=== PATIENT | male | born 1950 | race Caucasian/White ===

== ENCOUNTER 2024-05-18 13:48 | Emergency (ER) | payer OTHER, SELFPAY ==
[2024-05-18 13:59] VITALS: BP 155/87
--- NOTE | 2024-05-18 14:09 | ED.GENMED ---
ED Provider Triage
<Jesu Brown PA-C - Last Filed: 05/18/24 14:32>
-
Patient seen by provider in Triage?: Seen in Triage
Attestation: A medical screening examination has been initiated by a qualified medical provider. Based on the assessment performed at this time, it has been determined that an emergent medical condition may exist and the patient has been informed
that further medical evaluation and possible additional diagnostic testing may be needed.
HPI: 73-year-old male presenting with lower abdominal pain progressively worsening for the past 4 to 5 days, no bowel movement for 5 days but is having small volume of liquid stool. He has a history of fecal impaction as well as by obstruction.
Beginning to vomit today prompting him to come to the ER.
GENERAL: Alert , in no apparent distress
EYE: No visual abnormalities.
NECK: Trachea midline
ENT: No visible abnormalities.
LUNGS: No acute respiratory distress
NEUROLOGICAL: Alert and oriented
SKIN: Skin intact. No visible changes.
MUSCULOSKELETAL: Moving extremities normally
PSYCH: Normal and appropriate interaction.
A/P: Small bowel obstruction versus fecal impaction, will obtain labs with plan to image
This is a medical evaluation conducted in person to initiate diagnostic evaluation and provide initial therapeutics. Please see further documentation by the treating clinician.
History of Present Illness
<Jesu Brown PA-C - Last Filed: 05/18/24 14:32>
General
Chief Complaint: Abdominal Pain
Time Seen by Provider: 05/18/24 16:38
<Efren Harrison DO - Last Filed: 05/18/24 17:27>
General
Source: patient
Exam Limitations: none
History of Present Illness
History of Present Illness:
See MDM
Past History
<Jesu Brown PA-C - Last Filed: 05/18/24 14:32>
Past History
ED Past Medical History: Cancer (kidney) and HTN
Social History
Tobacco: Non-smoker
Alcohol: Occasional
Personal:
Living: with family
Employment: Disabled
Phy Exam
<Efren Harrison DO - Last Filed: 05/18/24 17:27>
Physical Exam
Physical Exam:
See MDM
Course
<Jesu Brown PA-C - Last Filed: 05/18/24 14:32>
Orders/Labs/Results
Orders:
Orders
05/18/24 14:06
CT Abd/Pel (IV only)-[facility] only Urgent
Comment:
Reason For Exam: abd pain, hx of SBO
05/18/24 14:34
Complete Blood Count/With Diff Urgent
Comprehensive Metabolic Panel Urgent
Lactic Acid Urgent
Lipase Urgent
Abnormal Lab Results
05/18/24
14:34
Absolute Neuts (auto) 9.0 H 10^3/uL
(1.4-6.5)
Neutrophils % 82.6 H %
(42.2-75.2)
Lymphocytes % 10.9 L %
(20.5-51.1)
Creatinine 0.6 L mg/dL
(0.7-1.3)
Glucose 122 H mg/dl
(70-99)
05/18/24 14:34
05/18/24 14:34
Vital Signs
Initial and Last Documented VS:
Initial Vital Signs
Temp Pulse Resp BP Pulse Ox
97.6 F 72 20 155/87 95
05/18/24 13:59 05/18/24 13:59 05/18/24 13:59 05/18/24 13:59 05/18/24 13:59
Last Documented Vital Signs
Temp Pulse Resp BP Pulse Ox
97.6 F 72 20 155/87 95
05/18/24 13:59 05/18/24 13:59 05/18/24 13:59 05/18/24 13:59 05/18/24 13:59
<Efren Harrison, DO - Last Filed: 05/18/24 17:27>
Orders/Labs/Results
Orders:
Orders
05/18/24 14:06
CT Abd/Pel (IV only)-[facility] only Urgent
Comment:
Reason For Exam: abd pain, hx of SBO
05/18/24 14:34
Complete Blood Count/With Diff Urgent
Comprehensive Metabolic Panel Urgent
Lactic Acid Urgent
Lipase Urgent
Abnormal Lab Results
05/18/24
14:34
Absolute Neuts (auto) 9.0 H 10^3/uL
(1.4-6.5)
Neutrophils % 82.6 H %
(42.2-75.2)
Lymphocytes % 10.9 L %
(20.5-51.1)
Creatinine 0.6 L mg/dL
(0.7-1.3)
Glucose 122 H mg/dl
(70-99)
05/18/24 14:34
05/18/24 14:34
Vital Signs
Initial and Last Documented VS:
Initial Vital Signs
Temp Pulse Resp BP Pulse Ox
97.6 F 72 20 155/87 95
05/18/24 13:59 05/18/24 13:59 05/18/24 13:59 05/18/24 13:59 05/18/24 13:59
Last Documented Vital Signs
Temp Pulse Resp BP Pulse Ox
97.6 F 72 20 155/87 95
05/18/24 13:59 05/18/24 13:59 05/18/24 13:59 05/18/24 13:59 05/18/24 13:59
<Efren Harrison, DO - Last Filed: 05/18/24 17:27>
MDM/Problems Addressed
Differential Diagnosis Includes:
HPI and MDM Narrative:
The triage provider note was evaluated
73-year-old male presenting for evaluation of abdominal pain and constipation. Patient has a history of constipation. He stopped taking his Colace a few days ago because he was away fishing. Patient complained of worsening abdominal pain
When I evaluated the patient, blood work and CT were already performed. CT shows concern for constipation. Patient states he had multiple bowel movements before into the room and is feeling better. I still performed a rectal to ensure that there
is no stool in the rectal vault. The rectal vault was empty. We discussed restarting his Colace regimen and using intermittent laxatives. I discussed the incidental findings on the CT but patient is already aware of that receives yearly MRIs
Physical exam
General: Well appearing and non-toxic
HEENT: protecting airway
Neck: appears supple
CV: No evidence of cyanosis
Resp: No accessory muscle use
Abd: Non-distended. No significant tenderness noted
Rectal: No stool in the rectal vault
Extremities: No deformities
Neuro: alert
Psych: Normal affect
Skin: Intact
Problems Addressed including Acute and Chronic Conditions affecting care:
1. Abdominal pain
Acuity: acute
Prognosis: stable
Details: Likely in setting of constipation. Blood work without clinical significance. CT was performed prior to my evaluation
Differential Diagnosis (but not limited to): Colitis, constipation
Testing considered: Urinalysis
Drug therapy (if applicable): OTC meds, please see d/c instruction regarding Rx drugs
Amount and/or Complexity of Data Reviewed
Clinical info obtained from: Patient
External data reviewed: N/A
Labs I independently reviewed (but not limited to): White blood cell count normal
Radiology: The CT scan was personally and independently reviewed. In addition, official CT report reviewed.
Pulse Ox: not hypoxic
EKG independently reviewed: N/A
Link Machine Operator: N/A
Critical Care: N/A
Risk of Complication:
Social Determinants of health: Good social support
Discussed with other providers: N/A
Escalation of Care includes Admit/Obs: After being observed in the Emergency Department, pt stable for discharge.
Occasional wrong word or 'sound a like' substitutions may have occurred due to the inherent limitations of voice recognition software. Read the chart carefully and recognize, using context, where substitutions have occurred.
<Efren Harrison DO - Last Filed: 05/18/24 17:27>
*Critical Care Note
Total Time (30-74mins, 75-104mins- exclusive of procedures): Not Applicable
ED Attending Note
<Jesu Brown PA-C - Last Filed: 05/18/24 14:32>
-
Portions of this chart may have been created with voice recognition software.� Occasional wrong word or��sound alike� substitutions may have occurred due to the inherent limitations of voice recognition software.
Discharge Plan
Departure
Patient Disposition: Home (Routine Discharge)
Date of Disposition: 05/18/24
Time of Disposition: 17:26
Patient with high blood pressure during this ER visit?: Yes
Discharge Problem:
Constipation
Instructions: Constipation, Adult (DC), BLOOD PRESSURE
Prescriptions:
No Action
atorvastatin 80 MG tablet
80 mg PO DAILY
carvedilol 6.25 MG tablet
6.25 mg PO BID
potassium chloride [Klor-Con 10] 10 MEQ tablet extended release
10 meq PO DAILY
nifedipine 60 MG tablet extended release 24hr
60 mg PO BID
finasteride 5 MG tablet
5 mg PO DAILY
ramipril 10 MG capsule
10 mg PO BID
alfuzosin 10 MG tablet extended release 24 hr
10 mg PO DAILY
icosapent ethyl [Vascepa] 1 GM capsule
1 gm PO BID
Referrals:
Vladimir Thornton DO [Family Provider] -
Activity Restrictions/Additional Instructions:
Please return for any worsening symptoms.
You may return at any time if you have further concerns.
Please follow up with your doctor at the first available appointment, preferably this week.
Thank you for choosing [facility].
Interventions
Interventions:
*Risk Screen - Suicide Last Done: 05/18/24 13:59
*ED COVID-19 Vaccine History Last Done: 05/18/24 13:59
Discharge Date and Time
Print Language: SERBIAN
[2024-05-18 14:42] LABS: % Basophils 0.6 % (0-2); % Eosinophils 1.5 % (0-6); % Immature Granulocytes 0.4 % (0-0.5); % Lymphocytes 10.9 % (20.5-51.1); % Neutrophils 82.6 % (42.2-75.2); Absolute Basophils 0.1 10^3/uL (0-0.2); Absolute Eosinophils 0.2 10^3/uL (0-0.7); Absolute Lymphocytes 1.2 10^3/uL (1.2-3.4); Absolute Monocytes 0.4 10^3/uL (0.1-0.6); Hematocrit 45.3 % (39.0-52.0); Hemoglobin 15.8 g/dL (13.0-18.0); Mean Corp Hgb Conc. 34.9 g/dL (33.0-37.0); Mean Platelet Volume 10.4 fL (7.4-10.4); Nucleated Red Blood Cells % 0 % (-); Platelet Count 244 10^3/uL (130-400); Red Blood Cell Count 5.27 10^6/uL (4.70-6.10); Red Cell Dist. Width 13.5 % (11.5-14.5); White Blood Cell Count 10.8 10^3/uL (4.8-10.8)
[2024-05-18 14:54] LABS: ALT (SGPT) 22 U/L (0-50); AST (SGOT) 29 U/L (17-59); Albumin 4.7 g/dl (3.5-5.0); Alkaline Phosphatase 69 U/L (38-126); Blood Urea Nitrogen 12 mg/dl (9-20); Calcium 9.6 mg/dl (8.4-10.2); Carbon Dioxide 26 mmol/L (22-30); Chloride 104 mmol/L (98-107); Glucose 122 mg/dl (70-99); Lipase 236 U/L (23-300); Potassium 3.7 mmol/L (3.5-5.1); Sodium 143 mmol/L (135-145); Total Protein 7.2 g/dl (6.3-8.2); eGFR > 60.00
[2024-05-18 14:55] LABS: Lactic Acid 1.3 mmol/L (0.7-2.0)
== END 2024-05-18 18:09 | disposition home or self-care (01) ==
LOC: EMR 13:48
PROVIDERS: Physician Assistant; EMERGENCY PHYSICIAN Student in an Organized Health Care Education/Training Program; FAMILY PHYSICIAN Family Medicine
DX: R10.30 Lower abdominal pain, unspecified (principal); I10 Essential (primary) hypertension; K59.00 Constipation, unspecified; Z85.528 Personal history of other malignant neoplasm of kidney
CPT/HCPCS: 99284; 74177; 80053; 83605; 83690; 85025; Q9967